=== PATIENT | male | born 1945 | race African-American/Black ===

== ENCOUNTER 2017-11-14 15:12 | Inpatient (IN) | payer MEDICARE, OTHER ==
[~2017-11-14] VITALS: Ht 185.4 cm; Wt 76.2 kg
--- NOTE | 2017-11-14 15:20 | NUR ---
PT.WAS SEEN BY . PT.A/A/OX2,FORGETFULL,NO S/S OF DISTRESS.
[2017-11-14] MEDS ORDERED: HYDRALAZINE IV (16:02)
[2017-11-14] MEDS ORDERED: POTASSIUM CHLORIDE PO (16:02)
[2017-11-14] MEDS ORDERED: DEXT38GE12 PO (16:02)
[2017-11-14] MEDS ORDERED: LANTUS INSULIN SQ (16:02)
[2017-11-14] MEDS ORDERED: AMLO5TAB2 PO (16:02)
[2017-11-14] MEDS ORDERED: ENOX40DI SQ (16:02)
[2017-11-14] MEDS ORDERED: WARF3TAB29 PO (16:02)
[2017-11-14] MEDS ORDERED: PSYLLIUM PO (16:02)
[2017-11-14] MEDS ORDERED: DOCU-141 PO (16:02)
[2017-11-14] MEDS ORDERED: HYDR-3326 PO (16:02)
[2017-11-14] MEDS ORDERED: GLUC1KIT IM (16:02)
[2017-11-14] MEDS ORDERED: DEXT50VI3 IV (16:02)
[2017-11-14] MEDS ORDERED: POLY17PO4 PO (16:02)
[2017-11-14] MEDS ORDERED: CALCIUM CHLORIDE 10% IV (16:02)
[2017-11-14] MEDS ORDERED: CALCIUM GLUCONATE IV (16:02)
[2017-11-14] MEDS ORDERED: SENN-18 PO (16:02)
[2017-11-14] MEDS ORDERED: POTASSIUM CHLORIDE IV (16:02)
[2017-11-14] MEDS ORDERED: APIDRA SQ (16:02)
[2017-11-14] MEDS ORDERED: LOSA50TA21 PO (16:02)
[2017-11-14] MEDS ORDERED: MAGNESIUM SULFATE IV (16:02)
[2017-11-14] MEDS ORDERED: SODIUM PHOSPHATE IV (16:02)
[2017-11-14] MEDS ORDERED: BISA5TAB13 PR (16:02)
--- NOTE | 2017-11-14 16:26 | NUR ---
PT.WATCHING TV.
[2017-11-14] MEDS ORDERED: HYDROCODONE/APAP 10-325 MG TABLET PO ONE (17:15)
--- NOTE | 2017-11-14 17:27 | NUR ---
SBAR REPORT GIVEN TO JENELLE/RN.PT.WAS MEDICATED FOR PAIN FROM ARTHRITIS.
[2017-11-14] MEDS ORDERED: HYDROCODONE/APAP 10-325 MG TABLET ONE (17:28)
--- NOTE | 2017-11-14 17:41 | NUR ---
PT.ADMITED TO [facility] ROOM 139A UNDER .Henry/GERMAINE.O
[2017-11-14 17:57] VITALS: BP 158/72
[2017-11-14] MEDS ORDERED: ACETAMINOPHEN 325 MG TABLET PO PRN (18:00)
[2017-11-14] MEDS ORDERED: MAGNESIUM HYDROXIDE 30 ML LIQUID UDC PO PRN (18:00)
[2017-11-14] MEDS ORDERED: MAG HYDROX/AL HYDROX/SIMETH 30 ML LIQUID UDC PO PRN (18:00)
--- NOTE | 2017-11-14 19:40 | NUR ---
Gps/Flux Mixer- Admitted from ER via wheel chair, alert, oriented, pleasant, Chief complaints of major depression. and S.I. Cooperative during his admission, Psychiatrist Dr Puckett was notified. Routine admission care done.
[2017-11-14] MEDS ORDERED: SENNOSIDES 1 TABLET PO PRN (20:30)
[2017-11-14] MEDS ORDERED: INSULIN GLARGINE,HUM 300 UNITS/3 ML CARTRIDGE SQ SCH (21:00)
[2017-11-14 21:30] VITALS: BP 142/73
[2017-11-14] MEDS: TEMAZEPAM 7.5 MG CAPSULE PO PRN (21:41)
[2017-11-14] MEDS: HYDROCODONE/APAP 5-325MG TABLET PO PRN (21:46)
--- NOTE | 2017-11-15 06:58 | NUR ---
PT SLEPT 8.15 HRS DURING SHIFT. C/O BACK PAIN DURING SHIFT, GIVEN NORCO X1 WITH HELP. HAD SHOWER IN AM. SAFETY MEASURES RENDERED.
[2017-11-15 07:30] VITALS: BP 128/80
[2017-11-15 07:39] LABS: BASOPHILS % (AUTO) 0.5 % (0.0-2.0); EOSINOPHILS # (AUTO) 0.1 K/uL (0.0-0.7); EOSINOPHILS % (AUTO) 1.2 % (0.0-7.0); HEMATOCRIT 44.6 % (36.7-47.1); HEMOGLOBIN 15.7 g/dL (12.5-16.3); LYMPHOCYTES # (AUTO) 3.5 K/uL (20.0-40.0); LYMPHOCYTES % (AUTO) 56.3 % (20.5-51.5); MEAN CORPUSCULAR HEMOGLOBIN 29.2 uug (23.8-33.4); MEAN CORPUSCULAR HGB CONC 35 g/dL (32.5-36.3); MEAN CORPUSCULAR VOLUME 83.2 fL (73.0-96.2); MONOCYTES # (AUTO) 0.8 K/uL (2.0-10.0); MONOCYTES % (AUTO) 12.9 % (0.0-11.0); NEUTROPHILS # (AUTO) 1.8 K/uL (1.8-8.9); NEUTROPHILS % (AUTO) 29.1 % (38.5-71.5); PLATELET COUNT (AUTO) 177 K/uL (152-348); RED BLOOD CELL COUNT(AUTO) 5.36 MIL/uL (4.06-5.63); WHITE BLOOD COUNT (AUTO) 6.2 K/uL (3.6-10.2)
[2017-11-15 08:09] LABS: IRON, SERUM 130 ug/dL (50-175)
[2017-11-15 08:34] LABS: ALANINE AMINOTRANSFERASE 30 U/L (16-63); ALKALINE PHOSPHATASE 94 U/L (50-136); ASPARTATE AMINOTRANSFERASE 29 U/L (15-37); CHLORIDE 108 mmol/L (98-107); CHOLESTEROL 131 mg/dL (<200); HDL CHOLESTEROL 55 mg/dL (40-60); MAGNESIUM 1.9 mg/dL (1.8-2.4); PHOSPHOROUS 3.6 mg/dL (2.5-4.9); POTASSIUM 3.9 mmol/L (3.5-5.1); TOTAL PROTEIN, SERUM 7.2 g/dL (6.4-8.2); TRIGLYCERIDES 69 MG/DL (30-150); UREA NITROGEN, BLOOD 11 mg/dL (7-18)
[2017-11-15] MEDS: HYDROCODONE/APAP 5-325MG TABLET PO PRN (09:00)
[2017-11-15] MEDS: MIRALAX 17 GM POWD.PACK PO SCH (09:31)
[2017-11-15] MEDS: AMLODIPINE 5 MG TABLET PO SCH (09:31)
[2017-11-15] MEDS: LOSARTAN POTASSIUM 50 MG TABLET PO SCH (09:31)
[2017-11-15 09:58] LABS: CARBON DIOXIDE 26 mmol/L (21-32); GLUCOSE 155 mg/dL (74-106)
[2017-11-15] MEDS ORDERED: DEXTROSE 50% 50 ML DISP.SYRIN IV PRN (13:45)
[2017-11-15 15:30] VITALS: BP 160/73
[2017-11-15] MEDS: HYDROCODONE/APAP 10-325 MG TABLET PO PRN ×2 (15:49→21:38)
[2017-11-15] MEDS: BLOOD SUGAR DIAGNOSTIC 1 EACH STRIP VI SCH ×2 (16:30→23:32)
[2017-11-15] MEDS ORDERED: WARFARIN SODIUM 3 MG TABLET PO SCH (17:00)
[2017-11-15] MEDS: INSULIN REGULAR, HUMAN 300 UNIT/3 ML VIAL SQ PRN ×2 (17:49→21:27)
[2017-11-15 20:00] VITALS: BP 150/66
[2017-11-15] MEDS: LORAZEPAM 1 MG TABLET PO PRN (21:18)
[2017-11-15] MEDS: INSULIN GLARGINE,HUM 300 UNITS/3 ML CARTRIDGE SQ SCH (21:32)
[2017-11-15] MEDS: MIRTAZAPINE 15 MG TABLET PO SCH (21:50)
--- NOTE | 2017-11-16 01:07 | NUR ---
RECEIVED PATIENT AWAKE IN BED AND PLEASANT UPON APPROACH.DENIES HEARING VOICES BUT ADMITS TO BEING DEPRESSED.STATED TO NURSE 'MY BACK PAIN IS KILLING ME.JUST WANT SOMETHING TO TAKE IT AWAY' I CAN THEN LIVE'.PAIN MEDICATION THEN GIVEN UPON ASSESSMENT WITH GOD EFFECT.ALL OTHER NEEDS MET TIMELY AND VISUAL CHECKS MADE REGULARLY.WILL CONTINUE TO MONITOR CLOSELY.
[2017-11-16 07:30] VITALS: BP 137/62
[2017-11-16] MEDS: BLOOD SUGAR DIAGNOSTIC 1 EACH STRIP VI SCH ×4 (07:41→22:09)
--- NOTE | 2017-11-16 07:48 | NUR ---
SLEPT FOR APPROX, 7;30 HRS. PAIN MED GIVEN WITH GOOD EFFECT.
[2017-11-16] MEDS: AMLODIPINE 5 MG TABLET PO SCH (08:17)
[2017-11-16] MEDS: LOSARTAN POTASSIUM 50 MG TABLET PO SCH (08:17)
[2017-11-16] MEDS: MIRALAX 17 GM POWD.PACK PO SCH (08:17)
[2017-11-16] MEDS: HYDROCODONE/APAP 10-325 MG TABLET PO PRN ×3 (08:21→22:11)
[2017-11-16] MEDS ORDERED: DEXTROSE 50% 50 ML DISP.SYRIN IV PRN (11:15)
[2017-11-16 12:03] LABS: *BLOOD, URINE 2+ (NEGATIVE); *CLARITY,URINE CLEAR (CLEAR); *COLOR,URINE YELLOW (YELLOW); *KETONES,URINE NEGATIVE (NEGATIVE); LEUKOCYTE ESTERASE ,URINE NEGATIVE (NEGATIVE); NITRITE, URINE NEGATIVE (NEGATIVE); PH,URINE 5.5 (5.0-8.0)
[2017-11-16 12:35] LABS: *BILIRUBIN,URIN 1+ (NEGATIVE); *PROTEIN,URINE 3+ (NEGATIVE); UGLUCOSE 2+ (NEGATIVE)
[2017-11-16] MEDS: INSULIN REGULAR, HUMAN 300 UNIT/3 ML VIAL SQ PRN ×2 (12:36→17:30)
[2017-11-16 12:40] LABS: BACTERIA,URINE FEW /HPF (NONE SEEN); SQUAMOUS EPITHELIAL CELL,UR FEW /HPF (NONE SEEN)
[2017-11-16 12:41] LABS: MUCUS,URINE MODERATE /LPF (0-FEW)
--- NOTE | 2017-11-16 13:37 | NUR ---
Patient noted sitting in activity room, took all AM medications, complains of back pain 12/19, norco 10/325mg given, no signs of distress noted, Urine collected for UA,all needs met at this time
[2017-11-16 15:39] VITALS: BP 128/50
[2017-11-16] MEDS: WARFARIN SODIUM 1 MG TABLET PO SCH (17:26)
--- NOTE | 2017-11-16 18:56 | NUR ---
norco 10/325mg given at 1510 for back pain 12/19, no behaviors noted this shift, no suicidal ideations verbalized this shift, will given report to retail shift supervisor nurse
[2017-11-16 20:51] VITALS: BP 141/61
[2017-11-16] MEDS: MIRTAZAPINE 15 MG TABLET PO SCH (21:55)
[2017-11-16] MEDS: INSULIN GLARGINE,HUM 300 UNITS/3 ML CARTRIDGE SQ SCH (22:04)
[2017-11-16] MEDS: LORAZEPAM 1 MG TABLET PO PRN (22:11)
[2017-11-17] MEDS: HYDROCODONE/APAP 10-325 MG TABLET PO PRN ×4 (06:20→23:24)
[2017-11-17] MEDS: BLOOD SUGAR DIAGNOSTIC 1 EACH STRIP VI SCH ×5 (06:48→20:59)
[2017-11-17 07:30] VITALS: BP 113/77
--- NOTE | 2017-11-17 07:34 | NUR ---
GPS/NSG PATIENT SLEPT A TOTAL OF 7.30 HOURS. PATIENT CONTINUES TO REQUIRE OBSERVATION FOR SAFETY,
[2017-11-17] MEDS: MIRALAX 17 GM POWD.PACK PO SCH (09:18)
[2017-11-17] MEDS: LOSARTAN POTASSIUM 50 MG TABLET PO SCH (09:18)
[2017-11-17] MEDS: LORAZEPAM 1 MG TABLET PO PRN (09:18)
[2017-11-17 11:02] VITALS: BP 125/56
[2017-11-17] MEDS: AMLODIPINE 5 MG TABLET PO SCH (11:02)
[2017-11-17 13:00] VITALS: BP 116/60
--- NOTE | 2017-11-17 13:15 | NUR ---
Initial DC Plan: Patient currently lives home alone [[address] [place] [address]; [phone]] and stated he would like to return there upon discharge. Pt does not want any family involvement in his care. SW will follow up with MD and patient to discuss most appropriate discharge plans. SW will form a safe and proper discharge.
[2017-11-17] MEDS: INSULIN REGULAR, HUMAN 300 UNIT/3 ML VIAL SQ PRN ×2 (13:28→17:11)
[2017-11-17] MEDS: WARFARIN SODIUM 1 MG TABLET PO SCH (17:10)
[2017-11-17 19:30] VITALS: BP 168/75
[2017-11-17] MEDS: MIRTAZAPINE 15 MG TABLET PO SCH (20:53)
[2017-11-17] MEDS: INSULIN GLARGINE,HUM 300 UNITS/3 ML CARTRIDGE SQ SCH (21:03)
[2017-11-17] MEDS: INSULIN REGULAR, HUMAN 300 UNITS/3 ML VIAL SQ PRN (21:09)
--- NOTE | 2017-11-17 22:00 | NUR ---
received to care, isolative, with minimal disclosure. no interactions noted with peers. compliant with medications and staff direction. as of 2199, he appears to be asleep. no distress noted. will continue to monitor closely.
--- NOTE | 2017-11-17 22:00 | NUR ---
addendum; pt denies SI, or desire to harm self.
--- NOTE | 2017-11-17 23:24 | NUR ---
PRN norco given, for 10/10 back pain
[2017-11-18] MEDS: TEMAZEPAM 7.5 MG CAPSULE PO PRN ×2 (00:28→23:43)
--- NOTE | 2017-11-18 00:29 | NUR ---
PRN restoril given for insomnia.
[2017-11-18] MEDS: BLOOD SUGAR DIAGNOSTIC 1 EACH STRIP VI SCH ×4 (06:50→21:28)
[2017-11-18] MEDS: HYDROCODONE/APAP 10-325 MG TABLET PO PRN ×3 (07:05→21:13)
--- NOTE | 2017-11-18 07:05 | NUR ---
slept 6.0 hours. PRN norco was given, for 10/10 lower back pain.
[2017-11-18 07:18] LABS: ALANINE AMINOTRANSFERASE 33 U/L (16-63); ALKALINE PHOSPHATASE 102 U/L (50-136); ASPARTATE AMINOTRANSFERASE 31 U/L (15-37); CARBON DIOXIDE 29 mmol/L (21-32); CHLORIDE 104 mmol/L (98-107); CREATININE 0.9 mg/dL (0.6-1.3); GLUCOSE 97 mg/dL (74-106); MAGNESIUM 1.9 mg/dL (1.8-2.4); PHOSPHOROUS 3.4 mg/dL (2.5-4.9); POTASSIUM 3.6 mmol/L (3.5-5.1); TOTAL PROTEIN, SERUM 7.8 g/dL (6.4-8.2); UREA NITROGEN, BLOOD 12 mg/dL (7-18)
[2017-11-18 07:23] LABS: HEMATOCRIT 45.1 % (36.7-47.1); HEMOGLOBIN 15.9 g/dL (12.5-16.3); MEAN CORPUSCULAR HEMOGLOBIN 29.1 uug (23.8-33.4); MEAN CORPUSCULAR HGB CONC 35 g/dL (32.5-36.3); MEAN CORPUSCULAR VOLUME 82.7 fL (73.0-96.2); PLATELET COUNT (AUTO) 200 K/uL (152-348); RED BLOOD CELL COUNT(AUTO) 5.45 MIL/uL (4.06-5.63); WHITE BLOOD COUNT (AUTO) 5.7 K/uL (3.6-10.2)
[2017-11-18 07:30] VITALS: BP 152/76
[2017-11-18] MEDS: MIRALAX 17 GM POWD.PACK PO SCH ×2 (09:00→09:26)
[2017-11-18] MEDS: AMLODIPINE 5 MG TABLET PO SCH (09:25)
[2017-11-18] MEDS: LOSARTAN POTASSIUM 50 MG TABLET PO SCH (09:26)
[2017-11-18 09:43] LABS: EOSINOPHILS % (MANUAL) 2 % (0-8); LYMPHOCYTES % (MANUAL) 59 % (20-40); MONOCYTES % (MANUAL) 16 % (2-10); NEUTROPHILS % (MANUAL) 23 % (42-75)
--- NOTE | 2017-11-18 11:06 | NUR ---
UR Note: JOSE LUIS received authorization from [facility] [[phone] Addendum: 11/18/17 at 1108 by LISBETH AMAYA (fax: [phone]) Patient is authorized through 11/18. Review due on 11/19. JOSE LUIS will continue to follow up.
[2017-11-18 15:30] VITALS: BP 148/65
[2017-11-18] MEDS: WARFARIN SODIUM 1 MG TABLET PO SCH (16:34)
[2017-11-18] MEDS: INSULIN REGULAR, HUMAN 300 UNIT/3 ML VIAL SQ PRN (16:36)
[2017-11-18 19:30] VITALS: BP 136/67
[2017-11-18] MEDS: MIRTAZAPINE 15 MG TABLET PO SCH (21:13)
--- NOTE | 2017-11-18 21:13 | NUR ---
PRN norco given, for 10/10 back pain
[2017-11-18] MEDS: INSULIN GLARGINE,HUM 300 UNITS/3 ML CARTRIDGE SQ SCH (21:47)
[2017-11-18] MEDS: INSULIN REGULAR, HUMAN 300 UNITS/3 ML VIAL SQ PRN (21:48)
--- NOTE | 2017-11-18 22:00 | NUR ---
received to care, isolative, but pleasant upon approach. denies si, or desire to harm self. no interactions noted with peers. compliant with medications and staff direction. as of 0, he appears to awake. no distress noted. will continue to monitor closely.
--- NOTE | 2017-11-18 23:43 | NUR ---
PRN restoril given for insomnia.
--- NOTE | 2017-11-19 00:20 | NUR ---
appears to be asleep. no distress noted.
[2017-11-19] MEDS: HYDROCODONE/APAP 10-325 MG TABLET PO PRN ×2 (06:25→12:38)
[2017-11-19] MEDS: BLOOD SUGAR DIAGNOSTIC 1 EACH STRIP VI SCH ×3 (06:26→17:13)
[2017-11-19 07:30] VITALS: BP 151/72
[2017-11-19] MEDS: MIRALAX 17 GM POWD.PACK PO SCH (09:38)
[2017-11-19] MEDS: AMLODIPINE 5 MG TABLET PO SCH (09:39)
[2017-11-19] MEDS: LOSARTAN POTASSIUM 50 MG TABLET PO SCH (09:39)
[2017-11-19] MEDS: INSULIN REGULAR, HUMAN 300 UNIT/3 ML VIAL SQ PRN ×2 (12:28→17:14)
[2017-11-19 15:00] VITALS: BP 128/69
--- NOTE | 2017-11-19 15:08 | NUR ---
DC Note: Patient was released by the [facility] and will be discharged home [[address] [place] [address]; [phone]] via taxi. Patient will be provided a taxi voucher. Patient is alert and oriented x4 and is ambulatory. Patient denies SI and HI and is aware and agreeable to discharge plans. Patient called his brother Abrahan [[phone]] with SW at side to alert him of discharge plans. SW attempted to call patient's sister Sasha [[phone]] to alert her of discharge, however, the phone was not currently in service. Patient will follow up with his research agricultural engineer Dr. Tai Ward [[id number], [place] [address]; ] and a psychiatrist at [facility] [[address], [address] [facility] [address]; ]. JOSE LUIS spoke with DIDIER Garcia from patient's insurance [employer] [[phone]] who stated they will set up a psychiatry appointment for patient within five days. A psych nurse will also be assigned to patient to follow up regarding his medications. Patient was provided with additional outpatient mental health resources to [facility] , [facility] , and the National Suicide Prevention Lifeline .
--- NOTE | 2017-11-19 16:24 | NUR ---
Firearms Report: OJSE LUIS submitted Mental Health Report to [facility] on 11/19.
[2017-11-19] MEDS ORDERED: WARFARIN SODIUM 4 MG TABLET PO SCH (17:00)
--- NOTE | 2017-11-19 18:16 | NUR ---
PATIENT WAS RELEASED FROM COURT EARLIER. PT IS BEING DISCHARGED HOME VIA TAXI. VS ARE STABLE, NO DISTRESS NOTED. PT DENIES S.I. DISCHARGE INSTRUCTIONS ARE GIVEN INCLUDING HIS FOLLOW UP APPOINTMENTS. PT VERBALIZES THAT HE WILL STOP BY HIS PHARMACY ([facility]) AND FILL HIS MEDICATIONS. PT VERBALIZES UNDERSTANDING. ALL BELONGINGS RETURNED.
== END 2017-11-19 18:25 | disposition home or self-care (01) | DRG 885 ==
LOC: ER 15:15 → GPS 17:28
PROVIDERS: ADMIT Psychiatry & Neurology Psychiatry; ATTEND Internal Medicine
DX: F33.9 Major depressive disorder, recurrent, unspecified (principal); E11.65 Type 2 diabetes mellitus with hyperglycemia; I25.2 Old myocardial infarction; G89.29 Other chronic pain; M54.9 Dorsalgia, unspecified; F25.9 Schizoaffective disorder, unspecified; Z79.01 Long term (current) use of anticoagulants; Z79.899 Other long term (current) drug therapy; Z79.4 Long term (current) use of insulin; I48.0 Paroxysmal atrial fibrillation; Z91.410 Personal history of adult physical and sexual abuse; J44.9 Chronic obstructive pulmonary disease, unspecified; M19.90 Unspecified osteoarthritis, unspecified site; Z86.19 Personal history of other infectious and parasitic diseases; I11.9 Hypertensive heart disease without heart failure; I25.10 Atherosclerotic heart disease of native coronary artery without angina pectoris
CPT/HCPCS: 36415; 71045; 83550; 83735; 84100; 84443; 85025; 85610; 87086; 93005; A4663; J1815